=== PATIENT | male | born 2000 | race Caucasian/White ===

== ENCOUNTER 2019-07-12 21:06 | Emergency (ER) | payer BC ==
[~2019-07-12] VITALS: Ht 193 cm; Wt 81.0 kg
[2019-07-12 21:09] VITALS: BP 153/74
[2019-07-12] MEDS ORDERED: BUPIVACAINE 0.25% INFIL ONE (21:30)
[2019-07-12] MEDS ORDERED: LIDOCAINE 2%, 20ML SQ ONE (21:30)
[2019-07-12] MEDS ORDERED: BUPIVACAINE 0.25% ONE (21:36)
[2019-07-12] MEDS ORDERED: LIDOCAINE-MPF 2% ,5ML ONE (21:37)
--- NOTE | 2019-07-12 21:39 | NUR ---
Pt alert and resting on gurney. Pt in NAD. Pt reports he was playing with his new pocket knife and sliced the tip of his right ringer finger.
--- NOTE | 2019-07-12 21:59 | NUR ---
MED TECH CLEANING THE WOUND NOW
--- NOTE | 2019-07-12 22:03 | NUR ---
[place] wall at bedside for suturing now
--- NOTE | 2019-07-12 22:37 | NUR ---
Patient/Caregiver given discharge instructions and they have confirmed that they understand the instructions. Patient ambulatory with steady gait.
== END 2019-07-12 22:39 | disposition home or self-care (01) ==
LOC: ED 22:30
DX: S61.214A Laceration without foreign body of right ring finger without damage to nail, initial encounter (principal); Y28.1XXA Contact with knife, undetermined intent, initial encounter; Y93.89 Activity, other specified; Y92.89 Other specified places as the place of occurrence of the external cause; Y99.0 Civilian activity done for income or pay
CPT/HCPCS: 12001; 99283